=== PATIENT | male | born 1950 | race Caucasian/White ===

== ENCOUNTER 2021-10-13 15:18 | Emergency (ER) | payer MEDICARE, OTHER ==
[2021-10-13 21:52] LABS: HEMOGLOBIN 12.9 gm/dl (14.0-17.5); RED BLOOD COUNT 3.86 M/UL (4.20-5.50); WHITE BLOOD COUNT 11.6 K/UL (4.5-11.0)
[2021-10-13 23:04] LABS: BORDETELLA PARAPERTUSSIS Not Detected (Not Detectd); BORDETELLA PERTUSSIS Not Detected (Not Detectd); CHLAMYDIA PNEUMONIAE Not Detected (Not Detectd); CORONAVIRUS HKU1 Not Detected (Not Detectd); CORONAVIRUS NL63 Not Detected (Not Detectd); CORONAVIRUS OC43 Not Detected (Not Detectd); CORONOAVIRUS 229E Not Detected (Not Detectd); HUMAN METAPNEUMOVIRUS Not Detected (Not Detectd); HUMAN RHINOVIRUS/ENTEROVIRUS Not Detected (Not Detectd); INFLUENZA A Not Detected (Not Detectd); INFLUENZA B Not Detected (Not Detectd); MYCOPLASMA PNEUMONIAE Not Detected (Not Detectd); PARAINFLUENZA VIRUS 1 Not Detected (Not Detectd); PARAINFLUENZA VIRUS 2 Not Detected (Not Detectd); PARAINFLUENZA VIRUS 3 Not Detected (Not Detectd); PARAINFLUENZA VIRUS 4 Not Detected (Not Detectd); RESPIRATORY SYNCYTIAL VIRUS Not Detected (Not Detectd)
[2021-10-14 00:22] LABS: SARS-CoV-2 NOT DETECTED (Not Detectd)
[2021-10-15 14:10] LABS: LYME TOTAL ANTIBODY EIA Negative (Negative)
== END 2021-10-14 03:08 | disposition home or self-care (01) ==
LOC: ER1 15:18
PROVIDERS: Physician Assistant
DX: R53.1 Weakness (principal); R53.83 Other fatigue; R74.01 Elevation of levels of liver transaminase levels; Z20.822 Contact with and (suspected) exposure to COVID-19
CPT/HCPCS: 0240U; 71045; 80053; 81001; 82550; 82553; 83605; 84439; 84443; 84484; 85025; 86618; 86666; 87633; 93005; 99285